=== PATIENT | male | born 1940 | race African-American/Black ===

== ENCOUNTER 2017-01-07 11:00 | Outpatient (RCR) | payer OTHER ==
[~2017-01-07 11:00] MED LIST: AMLODIPINE BESY10 MG ORAL; ASPIRIN81 MG ORAL; BRAIN MIGHT-DH1 EACH PO; FISH OIL300 M1 PO; METFORMIN HCL500 M1 ORAL; METOPROLOL TART50 MG ORAL; PRAVASTATIN SOD20 M1 PO; VITAMIN C500 MG/11 PO
== END 2017-01-17 | disposition home or self-care (01) ==
LOC: PTY 11:00
PROVIDERS: ATTEND Internal Medicine
DX: R26.9 Unspecified abnormalities of gait and mobility (principal); I25.10 Atherosclerotic heart disease of native coronary artery without angina pectoris; I10 Essential (primary) hypertension; E11.9 Type 2 diabetes mellitus without complications; Z89.511 Acquired absence of right leg below knee

== ENCOUNTER 2017-02-08 10:19 | Outpatient (RCR) | payer OTHER | END 2017-02-17 | disposition home or self-care (01) | LOC: PTY 10:19 | PROVIDERS: ATTEND Internal Medicine | DX: R26.9 Unspecified abnormalities of gait and mobility (principal); I25.10 Atherosclerotic heart disease of native coronary artery without angina pectoris; I10 Essential (primary) hypertension; E11.9 Type 2 diabetes mellitus without complications; Z89.511 Acquired absence of right leg below knee ==

== ENCOUNTER 2017-06-15 09:45 | Outpatient (RCR) | payer OTHER | END 2017-06-19 | disposition home or self-care (01) | LOC: PTY 09:45 | PROVIDERS: ATTEND Internal Medicine | DX: R26.89 Other abnormalities of gait and mobility (principal); Z89.511 Acquired absence of right leg below knee ==

== ENCOUNTER 2017-06-29 09:45 | Outpatient (RCR) | payer OTHER | END 2017-07-20 | disposition home or self-care (01) | LOC: PTY 09:45 | PROVIDERS: ATTEND Internal Medicine | DX: R26.89 Other abnormalities of gait and mobility (principal); Z89.511 Acquired absence of right leg below knee ==

== ENCOUNTER 2017-10-03 15:00 | Outpatient (RCR) | payer OTHER | END 2017-10-17 | disposition home or self-care (01) | LOC: PTY 15:00 | PROVIDERS: ATTEND Internal Medicine | DX: Z89.511 Acquired absence of right leg below knee (principal) ==

== ENCOUNTER 2017-10-26 07:30 | Outpatient (RCR) | payer OTHER | END 2017-11-17 | disposition home or self-care (01) | LOC: PTY 07:30 | PROVIDERS: ATTEND Internal Medicine | DX: Z89.511 Acquired absence of right leg below knee (principal) ==

== ENCOUNTER 2017-12-05 10:00 | Outpatient (RCR) | payer OTHER | END 2017-12-17 | disposition home or self-care (01) | LOC: PTY 10:00 | PROVIDERS: ATTEND Internal Medicine | DX: Z89.511 Acquired absence of right leg below knee (principal) ==

== ENCOUNTER 2018-01-03 10:35 | Outpatient (RCR) | payer OTHER | END 2018-01-17 | disposition home or self-care (01) | LOC: PTY 10:35 | PROVIDERS: ATTEND Internal Medicine | DX: Z89.511 Acquired absence of right leg below knee (principal) ==

== ENCOUNTER 2018-03-01 11:40 | Outpatient (RCR) | payer OTHER | END 2018-03-19 | disposition home or self-care (01) | LOC: PTY 11:40 | PROVIDERS: ATTEND Internal Medicine | DX: Z89.511 Acquired absence of right leg below knee (principal) ==